=== PATIENT | female | born 1995 | race Caucasian/White ===

== ENCOUNTER → 2017-09-13 10:37 | Outpatient (CLI) | payer OTHER, SELFPAY | PROVIDERS: PCP Nurse Practitioner Family; Visit Provider Nurse Practitioner Family | DX: R68.89 Other general symptoms and signs (principal) | CPT/HCPCS: 87275; 87276 ==

== ENCOUNTER → 2017-11-01 16:08 | Outpatient (CLI) | payer OTHER, SELFPAY ==
[2017-11-01 16:23] LABS: Basophils % 0.4 % (0.1-2.0); Eosinophils # 0.1 K/mm3 (0.0-0.4); Eosinophils % 1.7 % (0.1-12.0); Hematocrit 39.4 % (37.0-47.0); Hemoglobin 13.4 g/dL (12.2-16.2); Lymphocytes % 31.1 K/mm3 (10-50); Mean Corpuscular Hemoglobin 29.8 pg (27.0-31.2); Mean Corpuscular Volume 87.8 fl (81-99); Mean Platelet Volume 7.8 fl (7.4-10.4); Monocytes # 0.4 K/mm3 (0.1-1.0); Monocytes % 5.4 % (1.7-9.3); Neutrophils % 61.5 % (37.0-80.0); Platelet Count 203 K/mm3 (142-424); Red Blood Count 4.49 M/mm3 (4.20-5.40); Red Cell Distribution Width 12.9 % (11.5-17.5); White Blood Count 6.6 K/mm3 (4.8-10.8)
[2017-11-01 16:47] LABS: Alanine Aminotransferase 19 U/L (12-78); Albumin Level 3.7 gm/dL (3.4-5.0); Albumin/Globulin Ratio 0.9 (1.1-1.8); Alkaline Phosphatase 68 U/L (46-116); Anion Gap 10.8 mEq/L (5-15); Aspartate Amino Transferase 16 U/L (15-37); Bilirubin,Total 0.1 mg/dL (0.2-1.0); Blood Urea Nitrogen 12 mg/dL (7-18); Calcium 9.1 mg/dL (8.5-10.1); Carbon Dioxide 25 mmol/L (21.0-32.0); Chloride 107 mmol/L (98-107); Creatinine,Serum 0.66 mg/dL (0.55-1.02); Estimated Glomerular Filt Rate 112 ml/min (>60); GFR (African American) 136 ML/MIN (>60); Globulin 3.9 gm/dl (1.3-3.2); Glucose 93 mg/dL (74-106); Potassium 3.8 mmoL/L (3.5-5.1); Sodium 139 mmol/L (136-145); Thyroid Stimulating Hormone 2.34 uIU/ml (0.358-3.740); Total Protein,Serum 7.6 gm/dL (6.4-8.2)
[2017-11-03 15:33] LABS: Vitamin B12 341 pg/mL (232-1245); Vitamin D 25 Hydroxy 24.2 ng/mL (30.0-100.0)
== END ==
PROVIDERS: Visit Provider Nurse Practitioner Family
DX: R00.2 Palpitations (principal); R53.83 Other fatigue
CPT/HCPCS: 36415; 80053; 82607; 82652; 84443; 85025

== ENCOUNTER → 2017-11-07 13:19 | Outpatient (CLI) | payer OTHER, MEDICAID, SELFPAY ==
--- NOTE | 2017-11-07 13:29 | CA_ITS ---
PROCEDURE: 2-D M-mode and Doppler study INDICATIONS FOR THE TEST: Chest pain COPD Heart Murmur Tobacco Smoking PalpitationsX Fatigue Syncope Edema Hypertension Diabetes Mellitus Rheumatic Fever SOB TATE Obesity Hyperlipidemia Family History HD Additional History PATIENT INFORMATION HEIGHT: 66 WEIGHT:145 GENDER: Female B/P:120/70 2-D/M-MODE INTERPRETATION: 2-D MEASUREMENTS OBSERVED VALUES IN CMS Right Ventricular Dimension (RVDd) 1.9 Interventricular Septum (Thickness)(IVsd) .7 Left Ventricular Internal Dimensions(LVIDd) 4.5 Left Ventricular Posterior Wall (Thickness)(LVPWd) .8 Aortic Root 2.7 Aortic Cusp Separation 1.8 Left Atrial Dimensions (LAD) 2.1 2D 1. Left atrium is normal size, left ventricle is normal size, there is no concentric left ventricular hypertrophy, visually estimated ejection fraction 55% with no obvious regional wall motion abnormality. 2. The right atrium and right ventricle are normal size and contractility. 3. The aortic, mitral and tricuspid valve are structurally normal 4. The pulmonic valve is poorly visualized 5. No significant pericardial effusion noted. DOPPLER INTERROGATION: Doppler interrogation of the aortic, mitral and tricuspid valvular presence of mild mitral and tricuspid regurgitation, tricuspid and enteric velocity insufficient for calculation of the right ventricular systolic pressure, diastolic parameters are within normal range. CONCLUSION: 1. Normal left ventricular size, preserved left ventricular systolic function, visually estimated ejection fraction 55% no signal wall motion abnormality, diastolic parameters are within normal range. 2. Mild mitral and tricuspid regurgitation 3. No significant pericardial effusion noted.
== END ==
PROVIDERS: PCP Nurse Practitioner Family; Visit Provider Nurse Practitioner Family
DX: R00.2 Palpitations (principal)
CPT/HCPCS: 93225; 93226; 93306

== ENCOUNTER → 2019-06-18 13:53 | Outpatient (CLI) | payer OTHER, SELFPAY ==
[2019-06-18 15:07] LABS: HCG,Quantitative 0 mIU/mL
== END ==
PROVIDERS: Visit Provider Obstetrics & Gynecology
DX: Z32.00 Encounter for pregnancy test, result unknown (principal)
CPT/HCPCS: 36415; 84702

== ENCOUNTER → 2019-09-06 14:44 | Outpatient (CLI) | payer OTHER, SELFPAY ==
[2019-09-06 15:01] LABS: Basophils % 0.3 % (0.1-2.0); Eosinophils # 0.1 K/mm3 (0.0-0.4); Eosinophils % 2.2 % (0.1-12.0); Hematocrit 37.8 % (37.0-47.0); Hemoglobin 12.5 g/dL (12.2-16.2); Lymphocytes # 1.7 K/mm3 (0.7-4.5); Lymphocytes % 26.2 % (10-50); Mean Corpuscular Hemoglobin 28.9 pg (27.0-31.2); Mean Corpuscular Volume 87.6 fl (81-99); Mean Platelet Volume 7.5 fl (7.4-10.4); Monocytes # 0.4 K/mm3 (0.1-1.0); Monocytes % 6.4 % (1.7-9.3); Neutrophils # 4.2 K/mm3 (1.8-7.8); Neutrophils % 64.8 % (37.0-80.0); Platelet Count 201 K/mm3 (142-424); Red Blood Count 4.32 M/mm3 (4.20-5.40); Red Cell Distribution Width 12.8 % (11.5-17.5); White Blood Count 6.5 K/mm3 (4.8-10.8)
[2019-09-06 15:14] LABS: Anion Gap 13.3 mEq/L (5-15); Blood Urea Nitrogen 11 mg/dL (7-18); Calcium 9.1 mg/dL (8.5-10.1); Carbon Dioxide 27 mmol/L (21.0-32.0); Chloride 107 mmol/L (98-107); Creatinine,Serum 0.77 mg/dL (0.55-1.02); Estimated Glomerular Filt Rate 92 ml/min (>60); GFR (African American) 111 ML/MIN (>60); Glucose 104 mg/dL (74-106); Potassium 4.3 mmoL/L (3.5-5.1); Sodium 143 mmol/L (136-145)
[2019-09-06 15:18] LABS: HCG Qualitative, Serum Negative (Negative)
== END ==
PROVIDERS: Visit Provider Surgery
DX: R10.31 Right lower quadrant pain (principal)
CPT/HCPCS: 36415; 80048; 84703; 85025

== ENCOUNTER → 2020-02-28 14:59 | Outpatient (CLI) | payer OTHER, SELFPAY ==
[2020-02-28 15:27] LABS: Basophils % 0.3 % (0.1-2.0); Eosinophils # 0.1 K/mm3 (0.0-0.4); Hematocrit 38.2 % (37.0-47.0); Hemoglobin 12.5 g/dL (12.2-16.2); Lymphocytes # 1.7 K/mm3 (0.7-4.5); Lymphocytes % 21.4 % (10-50); Mean Corpuscular HGB Conc 32.7 g/dL (31.8-35.4); Mean Corpuscular Hemoglobin 29.2 pg (27.0-31.2); Mean Corpuscular Volume 89.3 fl (81-99); Mean Platelet Volume 7.3 fl (7.4-10.4); Monocytes # 0.6 K/mm3 (0.1-1.0); Monocytes % 7.6 % (1.7-9.3); Neutrophils # 5.5 K/mm3 (1.8-7.8); Neutrophils % 69.6 % (37.0-80.0); Platelet Count 171 K/mm3 (142-424); Red Blood Count 4.28 M/mm3 (4.20-5.40); Red Cell Distribution Width 12.6 % (11.5-17.5); White Blood Count 7.9 K/mm3 (4.8-10.8)
[2020-03-01 11:10] LABS: HIV Screen 4th Generation wRfx Non Reactive (Non Reactive)
[2020-03-01 12:56] LABS: Hepatitis B Surface Antigen Negative (Negative); Hepatitis C Antibody <0.1 s/co ratio (0.0-0.9); Rubella Antibodies, IgG 2.16 index (Immune >0.99)
[2020-03-01 15:33] LABS: Rapid Plasma Reagin Ab Titer Non Reactive (NonRea<1:1)
== END ==
PROVIDERS: Visit Provider Nurse Practitioner Obstetrics & Gynecology
DX: Z34.90 Encounter for supervision of normal pregnancy, unspecified, unspecified trimester (principal)
CPT/HCPCS: 36415; 85025; 86592; 86703; 86762; 86850; 87340; 87380; G0432

== ENCOUNTER → 2020-03-11 12:08 | Outpatient (CLI) | payer OTHER, SELFPAY | PROVIDERS: PCP Internal Medicine Adolescent Medicine; Visit Provider Internal Medicine Adolescent Medicine | DX: U07.1 COVID-19 (principal) | CPT/HCPCS: U0003 ==

== ENCOUNTER → 2020-03-20 11:30 | Outpatient (CLI) | payer OTHER, SELFPAY ==
[2020-03-21 14:42] LABS: Covid-19 Nasal PCR Sendout Lex POSITIVE
== END ==
PROVIDERS: PCP Internal Medicine Adolescent Medicine; Visit Provider Internal Medicine Adolescent Medicine
DX: Z20.828 Contact with and (suspected) exposure to other viral communicable diseases (principal); U07.1 COVID-19
CPT/HCPCS: U0004

== ENCOUNTER → 2020-03-24 13:31 | Outpatient (CLI) | payer OTHER, SELFPAY ==
[2020-03-24 19:35] LABS: Coronavirus 19 IgG Antibody Positive (Negative); Coronavirus 19 IgM Antibody Negative (Negative)
== END ==
PROVIDERS: PCP Internal Medicine Adolescent Medicine; Visit Provider Internal Medicine Adolescent Medicine
DX: Z20.828 Contact with and (suspected) exposure to other viral communicable diseases (principal); U07.1 COVID-19
CPT/HCPCS: 36415; 86328

== ENCOUNTER → 2020-05-26 15:05 | Outpatient (CLI) | payer OTHER, SELFPAY ==
[2020-05-30 00:08] LABS: AFP Value 57.2 ng/mL (.); DIA MoM 1.34 (.); DIA Value 214.29 pg/mL (.); DSR (Second Trimester) 1 IN 3802 (.); Gest. Age on Collection Date 18.6 WEEKS (.); Maternal Age At EDD 25.9 yr (.); OSBR Risk 1 IN 4947 (.); Results Report (.); hCG MoM 0.99 (.); uE3 MoM 0.87 (.); uE3 Value 1.43 ng/mL (.)
[2020-05-30 10:05] LABS: Gestat. Age Based On EDD (.)
== END ==
PROVIDERS: Visit Provider Nurse Practitioner Obstetrics & Gynecology
DX: Z34.90 Encounter for supervision of normal pregnancy, unspecified, unspecified trimester (principal)
CPT/HCPCS: 36415; 82106

== ENCOUNTER → 2020-06-06 12:49 | Outpatient (CLI) | payer OTHER, SELFPAY ==
--- NOTE | 2020-06-06 12:50 | US_ITS ---
PROCEDURE: US OB /MATERNAL DETAIL CLINICAL INDICATION: 20 week gestation Anatomy exam COMPARISON: No exams were available for comparison FINDINGS: There is a single live intrauterine gestation which is in cephalic presentation. heart and body motion noted. The placenta is posterior and fundal. Grade 1. The cervix is closed and measures approximately 4 cm in length. Complete survey performed and was unremarkable on the submitted images as in PACS. No discrete anomalies identified on survey imaging by technologist. Active fetus. Three-vessel cord with satisfactory umbilical cord insertion. 4- chamber heart noted. Survey of brain & ventricles Unremarkable. Face and neck survey unremarkable. Diaphragm and chest views unremarkable. Abdomen: Both kidneys noted and unremarkable. Stomach noted and satisfactory. Spine: Survey of the spine satisfactory with no anomalies identified nor imaged. Both arms and legs noted. Amniotic Fluid: Adequate. Maternal adnexa: No significant findings. Measurements: Average ultrasound age 20weeks 4days. Gestational Age 20weeks 4days Estimated due date by ultrasound age 0310/20/2020. Estimated weight 351g BPD = 20weeks 5days OFD = 21 weeks 1 day HC = 20weeks 2days AC = 20weeks 3days FL = 20weeks 4days Growth Percentile= 56Percent% Heart Rate = 150bpm Cerebellum = 20weeks 4days Humerus = 20weeks 1day HC/AC is 1.17 CI is 0.76 FL/BPD is 0.69 FL/AC is 0.22 IMPRESSION: Live IUP in cephalic presentation with an average ultrasound age of 20 weeks and 4 days. No obvious anomalies. Please see above for detail. Dictated by: Vernon Gunn MD 06/07/2020 10:30 Vernon Gunn MD in [facility] 06/07/2020 10:30
== END ==
PROVIDERS: PCP Internal Medicine Adolescent Medicine; Visit Provider Nurse Practitioner Obstetrics & Gynecology
DX: Z34.90 Encounter for supervision of normal pregnancy, unspecified, unspecified trimester (principal); Z3A.20 20 weeks gestation of pregnancy
CPT/HCPCS: 76811

== ENCOUNTER → 2020-07-29 07:58 | Outpatient (CLI) | payer OTHER, SELFPAY ==
[2020-08-07 08:53] LABS: Glucose,Fasting 95 mg/dl (74-100)
[2020-08-07 10:30] LABS: Glucose 1 Hour 181 mg/dL (74-100)
== END ==
PROVIDERS: Visit Provider Nurse Practitioner Obstetrics & Gynecology
DX: Z34.90 Encounter for supervision of normal pregnancy, unspecified, unspecified trimester (principal)
CPT/HCPCS: 36415; 82951

== ENCOUNTER → 2020-08-07 08:03 | Outpatient (CLI) | payer OTHER, SELFPAY | PROVIDERS: Visit Provider Nurse Practitioner Obstetrics & Gynecology | DX: Z34.90 Encounter for supervision of normal pregnancy, unspecified, unspecified trimester (principal) ==

== ENCOUNTER → 2020-08-14 08:10 | Outpatient (CLI) | payer OTHER, SELFPAY ==
[2020-08-14 08:41] LABS: Glucose,Fasting 97 mg/dl (74-100)
[2020-08-14 10:08] LABS: Glucose 1 Hour 181 mg/dL (74-100)
[2020-08-14 11:54] LABS: Glucose 2 Hour 127 mg/dL (74-100)
[2020-08-14 15:22] LABS: Glucose 3 Hour 125 mg/dL (74-100)
== END ==
PROVIDERS: Visit Provider Nurse Practitioner Obstetrics & Gynecology
DX: O99.810 Abnormal glucose complicating pregnancy (principal); R73.09 Other abnormal glucose; Z34.90 Encounter for supervision of normal pregnancy, unspecified, unspecified trimester
CPT/HCPCS: 36415; 82951

== ENCOUNTER → 2020-09-24 18:08 | Outpatient (CLI) | payer OTHER, SELFPAY | PROVIDERS: Visit Provider Nurse Practitioner Obstetrics & Gynecology | DX: Z34.90 Encounter for supervision of normal pregnancy, unspecified, unspecified trimester (principal); Z3A.36 36 weeks gestation of pregnancy | CPT/HCPCS: 86403 ==

== ENCOUNTER → 2020-10-06 10:41 | Outpatient (CLI) | payer OTHER, SELFPAY ==
--- NOTE | 2020-10-06 10:41 | US_ITS ---
PROCEDURE: US OB BIOPHYSICAL PROFILE CLINICAL INDICATION: SGA Small for gestational age TECHNIQUE: Transabdominal imaging FINDINGS: The following parameters are obtained: Average ultrasound age is Average 37weeks 4days Estimated due date by ultrasound is 10/23/2020. Estimated weight is 3,161g. This is 51 percentile BPD: 38 weeks 4 days OFD: 38 weeks 4 days HC: 37 weeks 2 days AC: 37 weeks 2 days FL: 37 weeks 0 days heart rate: 169bpm bpm. HC/AC: 0.99 Cephalic index: 0.83 FL/BPD: 0.76 FL/AC: 0.22 Amniotic fluid index: 15.72cm Qualitative AFV: 2 breathing movements: 2 Gross body movements: 2 Tone: 2 Biophysical profile score: 8 Fetus is in cephalic presentation. The placenta is posterior and grade 3 CHIKA is 16 cm IMPRESSION: Live IUP at 37 weeks 4 days with an estimated weight 3161 g which is 51st percentile. Normal CHIKA of 16 cm Biophysical profile 8/8 Posterior grade 3 placenta Dictated by: Vernon Gunn MD 10/07/2020 08:58 Vernon Gunn MD in [facility] 10/07/2020 08:58
== END ==
PROVIDERS: PCP Internal Medicine Adolescent Medicine; Visit Provider Nurse Practitioner Obstetrics & Gynecology
DX: O36.5131 Maternal care for known or suspected placental insufficiency, third trimester, fetus 1 (principal)
CPT/HCPCS: 76816; 76819

== ENCOUNTER 2020-10-08 12:10 | Outpatient (CLI) | payer OTHER, SELFPAY ==
[2020-10-08 12:25] VITALS: BMI 30.8
[2020-10-08 12:45] VITALS: BP 134/87; PULSE 101; RESP 20; O2SAT 97
[2020-10-08 12:47] LABS: Microscopic, Urine URINE MICROSCOPIC (MICROSCOPIC)
[2020-10-08 12:48] VITALS: BMI 30.8
[2020-10-08 12:56] LABS: Appearance,Urine CLOUDY (Clear); Bilirubin,Urine Negative (Negative); Blood, Urine 1+ (Negative); Color,Urine YELLOW (Yellow); Glucose,Urine (UA) Negative (Negative); Ketones,Urine Negative (Negative); Leukocyte Esterase,Urine 2+ (Negative); Nitrate,Urine Negative (Negative); Protein,Urine 1+ (Negative); Specific Gravity, Urine >= 1.030 (1.005-1.030); Urobilinogen,Urine 0.2 EU/dl (0.2)
[2020-10-08 13:02] LABS: Fetal Membrane Rupture (Rapid) Negative (Negative)
[2020-10-08 13:08] LABS: Amphetamine/Metha Screen,Urine Negative ng/ml (<1000)
[2020-10-08 13:09] LABS: Barbiturates Screen,Urine Negative ng/ml (<200); Benzodiazepines Screen,Urine Negative ng/ml (<200)
[2020-10-08 13:10] LABS: Cannabinoid Screen,Urine Negative ng/ml (<50); Cocaine Screen,Urine Negative ng/ml (<300)
[2020-10-08 13:11] LABS: Methadone Screen,Urine Negative ng/ml (<300)
[2020-10-08 13:12] LABS: Opiate Screen,Urine Negative ng/ml (<300); Phencyclidine Screen,Urine Negative ng/ml (<25)
[2020-10-08 13:29] LABS: Bacteria,Urine Trace /lpf
== END 2020-10-08 14:10 | disposition home or self-care (01) ==
LOC: OBOUT 12:11 → OB 12:11
PROVIDERS: PCP Internal Medicine Adolescent Medicine; Visit Provider Nurse Practitioner Obstetrics & Gynecology
DX: O26.893 Other specified pregnancy related conditions, third trimester (principal); Z3A.38 38 weeks gestation of pregnancy
CPT/HCPCS: 59025; 80305; 81001; 84112; 87086; G0463

== ENCOUNTER → 2020-10-19 09:38 | Outpatient (CLI) | payer OTHER, SELFPAY | PROVIDERS: PCP Internal Medicine Adolescent Medicine; Visit Provider Nurse Practitioner Obstetrics & Gynecology | DX: Z01.818 Encounter for other preprocedural examination (principal); Z20.822 Contact with and (suspected) exposure to COVID-19; Z34.90 Encounter for supervision of normal pregnancy, unspecified, unspecified trimester | CPT/HCPCS: U0003 ==

== ENCOUNTER 2020-10-20 04:56 | Inpatient (IN) | payer OTHER, SELFPAY ==
[2020-10-20 05:00] VITALS: BMI 30.8
[2020-10-20 05:55] VITALS: BP 117/73; PULSE 80; RESP 18; TEMP 36.7; O2SAT 99; BMI 30.8
[2020-10-20 05:58] LABS: Microscopic, Urine URINE MICROSCOPIC (MICROSCOPIC)
[2020-10-20 06:09] LABS: Basophils % 0.3 % (0.1-2.0); Eosinophils # 0.1 K/mm3 (0.0-0.4); Hematocrit 33.8 % (37.0-47.0); Lymphocytes # 1.9 K/mm3 (0.7-4.5); Mean Corpuscular HGB Conc 32.5 g/dL (31.8-35.4); Mean Corpuscular Hemoglobin 31.2 pg (27.0-31.2); Mean Platelet Volume 10.7 fl (7.4-10.4); Monocytes # 0.8 K/mm3 (0.1-1.0); Monocytes % 7.8 % (1.7-9.3); Neutrophils # 7.3 K/mm3 (1.8-7.8); Neutrophils % 71.9 % (37.0-80.0); Platelet Count 112 K/mm3 (142-424); Red Blood Count 3.53 M/mm3 (4.20-5.40); Red Cell Distribution Width 14.8 % (11.5-17.5); White Blood Count 10.2 K/mm3 (4.8-10.8)
[2020-10-20 06:11] LABS: Appearance,Urine CLEAR (Clear); Bilirubin,Urine Negative (Negative); Blood, Urine TRACE-L (Negative); Color,Urine YELLOW (Yellow); Glucose,Urine (UA) Negative (Negative); Ketones,Urine Negative (Negative); Leukocyte Esterase,Urine 2+ (Negative); Nitrate,Urine Negative (Negative); Protein,Urine Negative (Negative); Specific Gravity, Urine 1.025 (1.005-1.030); Urobilinogen,Urine 0.2 EU/dl (0.2)
[2020-10-20 06:49] LABS: Bacteria,Urine Trace /lpf
[2020-10-20 07:03] LABS: Barbiturates Screen,Urine Negative ng/ml (<200)
[2020-10-20 07:04] LABS: Benzodiazepines Screen,Urine Negative ng/ml (<200)
[2020-10-20 07:05] LABS: Amphetamine/Metha Screen,Urine Negative ng/ml (<1000); Cannabinoid Screen,Urine Negative ng/ml (<50)
[2020-10-20 07:06] LABS: Cocaine Screen,Urine Negative ng/ml (<300); Methadone Screen,Urine Negative ng/ml (<300)
[2020-10-20 07:07] LABS: Opiate Screen,Urine Negative ng/ml (<300)
[2020-10-20 07:08] LABS: Phencyclidine Screen,Urine Negative ng/ml (<25)
--- NOTE | 2020-10-20 09:32 | HMH.LABNOT ---
Labor Note - Subjective: Date: 10/20/20 Time: 09:00 regular contraction - Objective: NST:: Reactive Contractions:: every 2-3 minutes Cervical Dilation:: 2 Effacement:: 75% Station: -2 Membranes: artificially ruptured - Fetus: Monitoring?: Yes monitoring type:: Internal and External Comment:: I inserted an IUPC. - Assessment: Labor progressing?: Yes Cephalopelvic disproportion?: No Patient Problems: All Active Problems (Acute) Abdominal pain (Acute) Constipation (Acute) Medication side effects (Acute) - Plan: Anesthesia for epidural?: No Continue to labor down?: Yes Plan for ?: No Continue to monitor?: Yes Start pushing?: No Comment:: I ruptured membranes and there is clear fluid. I inserted an IUPC.
--- NOTE | 2020-10-20 09:33 | HMH.OBAPHP ---
OB - H&P: HPI Antepartum - History of Present Illness Chief complaint: Term History of present illness: She is a 24-year-old 3 para 1 at 39 and 4 weeks gestational age. She is been feeling pressure and vaginal contractions. As result of that we have elected to induce her labor at term. - History of Present Criteria for establishing EDC:: LMP confirmed by 1st trimester US care: good care Ultrasounds: normal 1st trimester US, normal mid trimester US Obstetrical complications: none - Labs Blood type: O (+) positive Rubella: immune RPR/VDRL: nonreactive GBS status: negative HBsAG: negative [facility] History I have reviewed the patient's past medical history: Yes Medical History: Reports:: Anxiety, Migraine *Have you ever received a pneumonia vaccine?: No *Have you received a flu vaccine this season?: Yes Other Medical History: Reports: Other Laterality Cases: Bilateral: Tonsillectomy Other Surgeries: Yes: No Previous Surgery. No: Amputation: No Fractures: No - *Social History Smoking Status: Never smoker Alcohol Intake: never Alcohol Intake Frequency:: other Substance Use Type: denies use *Occupational Status:: employed *Travel in the last 8 weeks: None - Psychiatric History Pschychiatric History:: Reports:: Anxiety Family Hx:: No significant family history CO[place] LEAD history: Therapeutic Para: 1 Review of Systems - Review of Systems Review of systems:: pertinent systems reviewed and negative unless documented below Meds Home Medications Medication Instructions Recorded Confirmed Type Vit Calc,Iron,Folic [Kpn] 1 tab PO DAILY 10/20/20 10/20/20 History Terconazole 1 appful VAGINAL HS 10/20/20 10/20/20 History Allergies Allergy/AdvReac Type Severity Reaction Status Date / Time No Known Allergies Allergy Verified 10/16/20 08:12 OB - H&P: Exam - Physical Exam Vital signs: Temp Pulse Resp BP Pulse Ox 98.0 F 80 18 117/73 99 10/20/20 05:55 10/20/20 05:55 10/20/20 05:55 10/20/20 05:55 10/20/20 05:55 - Constitutional no acute distress - Routine HEENT Exam Head: Present: normocephalic Eye: Present: EOMI, PERRL ENT: Present: mucous membranes moist - Routine Neck Exam Present: supple, full ROM - Routine Respiratory Exam Absent: accessory muscle use (good air entry bilaterally), respiratory distress, wheezes, crackles - Routine Cardiovascular Exam Present: RRR. Absent: murmur - Routine Abdominal Exam Present: soft, normoactive bowel sounds. Absent: tenderness, distended, guarding - Routine Rectal Exam Patient deferred: visual exam, digital exam - Routine Exam Patient deferred: external exam, groin exam, perineal exam - Routine Extremities Exam Present: full ROM. Absent: cyanosis, edema - Routine Skin Exam Present: intact. Absent: cyanosis - Routine Neurological Exam Present: alert, oriented X3 - Routine Psychiatric Exam Present: normal affect OB - Results - Labs Labs: Short CBC 10/20/20 Range/Units 05:37 WBC 10.2 (4.8-10.8) K/mm3 Hgb 11.0 L (12.2-16.2) g/dL Hct 33.8 L (37.0-47.0) % Plt Count 112 L (142-424) K/mm3 Urine 10/20/20 Range/Units 05:37 Urine Color Yellow (Yellow) Urine Appearance Clear (Clear) Urine pH 6.0 (5.0-8.5) Ur Specific [place] 1.025 (1.005-1.030) Urine Protein Negative (Negative) Urine Glucose (UA) Negative (Negative) OB - A/P Antepartum (1) Normal delivery at term Status: Acute - Additional Plan Planning to breastfeed?: Yes Plan: induction Additional Information:: I have ruptured her membranes and there was clear fluid. An IUPC was inserted as well.
--- NOTE | 2020-10-20 12:39 | HMH.DN ---
- Delivery Note Delivery Date:: 10/20/20 Delivery Time:: 12:24 Anesthesia Type: None Was labor medically induced?: Yes Induction method: per pitocin protocol Gestational age (weeks): 39 delivered prior to 39 weeks?: No Gender: Female at 1 minute: 9 at 5 minutes: 9 LAC or MLE?: LAC Delivery Procedure:: She is a 24-year-old 3 para 1 aborta 1 who was 39+ weeks gestational age. She was feeling pressure and discomfort so we elected to induce her labor at term. She was started on IV oxytocin had her membranes ruptured. She progressed to full dilation and delivered spontaneously a liveborn female child at 12:24 PM in the afternoon of October 20, 2020. On deliver the head the anterior shoulder then rapidly delivered followed by the rest the 's body atraumatically. The oropharynx and nasopharynx were bulb suction. The baby was vigorous. We allowed the cord to continue to pulsate for approximately 1 minute. The cord is then doubly clamped and cut and the infant was placed on the mother's abdomen for further care. The nurses assigned Apgars of 9 at 1 minute and 9 at 5 minutes. We then obtained cord blood as well as cord pH. Using gentle traction on the cord and countertraction on the fundus I was able to easily deliver the placenta intact at 12:28 PM.. It had a normal three-vessel cord. She had a small second-degree perineal laceration that was repaired with 3-0 Vicryl Rapide suture to the superficial tissue of the vagina and 2-0 Vicryl suture to the deep tissues of the perineum. I anesthetized the skin with 10 cc of 1% Xylocaine. I used 2-0 Vicryl suture for the subcuticular stitches on the perineum as well. She has O+ blood, she is rubella immune and was group B streptococcus negative. She plans to breast-feed. Her channeler outsole is Dr. Quintero. Estimated blood loss was approximately 500 cc. Laceration:: vaginal Placental Delivery Description: Spontaneous
[2020-10-20 20:00] VITALS: BP 125/73; PULSE 75; RESP 17; TEMP 36.8; O2SAT 98
[2020-10-21 07:44] LABS: Hematocrit 31.3 % (37.0-47.0); Hemoglobin 10.4 g/dL (12.2-16.2)
[2020-10-21 08:00] VITALS: BP 117/78; PULSE 87; RESP 20; TEMP 36.7; O2SAT 99
--- NOTE | 2020-10-21 08:43 | HMH.ACPN2 ---
Internal Medicine - PN: Subj *Date: 10/21/20 *Time: 08:43 Interval history: She is doing very well this morning. She is eating and drinking and ambulating. She is breast-feeding. Her lochia is normal. She is 1 day from a vaginal delivery. Exam Vital signs and Labs for Last 24 Hours: Temp Pulse Resp BP Pulse Ox 98.3 F 75 17 125/73 98 10/20/20 20:00 10/20/20 20:00 10/20/20 20:00 10/20/20 20:00 10/20/20 20:00 Laboratory Results - last 24 hr 10/20/20 12:39: Cord ABG pH 7.30 L 10/21/20 06:45: Hgb 10.4 L, Hct 31.3 L I & O for Last 24 hours: Intake & Output 10/18/20 10/19/20 10/20/20 10/21/20 10:59 11:59 11:59 11:59 Weight 197 lb Microbiology Reports for the Last 24 Hours: Microbiology 10/20/20 05:37 Urine,Clean Catch Urine Culture - Preliminary NO GROWTH AFTER 24 HOURS - Constitutional no acute distress - *Routine HEENT Exam Head: Present: normocephalic Eye: Present: EOMI, PERRL ENT: Present: mucous membranes moist Assessment and Plan (1) Normal delivery at term Status: Acute Category: Medical Code(s): O80 - Encounter for full-term uncomplicated delivery - Assessment and plan all Dx Assessment and Plan for all problems:: She is doing very well this morning. She is eating and drinking and ambulating. She is breast-feeding. We will plan to send her home tomorrow.
[2020-10-21 16:20] VITALS: BP 116/69; PULSE 97; RESP 20; TEMP 36.9; O2SAT 98
[2020-10-22 08:30] VITALS: BP 134/75; PULSE 87; RESP 20; TEMP 36.9; O2SAT 98
--- NOTE | 2020-10-22 09:34 | HMH.OBDCSM ---
General - General Admission date:: 10/20/20 Discharge date: 10/22/20 HPI - History of Present Illness Comments: She is a 24-year-old 3 now para 2 aborta 1 who was 39 weeks gestational age. She was feeling pressure and discomfort so we elected to induce her labor at term. Hospital Course Hospital Course: She was started on IV oxytocin had her membranes ruptured. She progressed to full dilation and delivered spontaneously a liveborn female child at 12:24 PM in the afternoon of October 20, 2020. Baby weighed 7 pounds 12 ounces and was 20 inches long. She had Apgars of 9 at 1 minute and 9 at 5 minutes. She has done well and has remained afebrile throughout her hospitalization. She is eating and drinking and ambulating. She is bottlefeeding. Her lochia is normal. She has O+ blood, she is rubella immune and was group B streptococcus negative. Her cloth carrier is Dr. Quintero. She is discharged home to follow-up with me in 2 weeks time. She will continue with her vitamins and iron. She was given the usual instructions with respect to limiting her activity, driving and sexual activity. Her condition on discharge is stable and improved. Rhogam Administration: Not Indicated Objective Vital signs: Temp Pulse Resp BP Pulse Ox 98.4 F 97 H 20 116/69 98 10/21/20 16:20 10/21/20 16:20 10/21/20 16:20 10/21/20 16:20 10/21/20 16:20 no acute distress - *Routine HEENT Exam Head: Present: normocephalic Eye: Present: EOMI, PERRL ENT: Present: mucous membranes moist DS: Diagnosis - Discharge Diagnosis (1) Normal delivery at term Status: Acute Discharge Plan - Patient Discharge Instructions ACTIVITY: No heavy lifting DIET: continue same diet Additional Instructions: No heavy lifting and nothing in the vagina for 6 weeks. Patient Instructions: Depression, Hemorrhage, DI for Labor and Delivery, Vaginal , DI for Pre-eclampsia, [facility] Post Discharge Instructions, Preventing the Spread of Coronavirus Discharge Instructions - Follow up Plan Follow up with: Feliciano Chaudhary MD [Staff Physician] - 11/05/20 10:15 am Disposition: Home, Self-[facility] Medications: Home Medications Medication Instructions Recorded Confirmed Type Vit Calc,Iron,Folic [Kpn] 1 tab PO DAILY 10/20/20 10/20/20 History Terconazole 1 appful VAGINAL HS 10/20/20 10/20/20 History Prescriptions/Medication Reconciliation: Continued Vit Calc,Iron,Folic [Kpn] 1 tab PO DAILY No Action Terconazole 1 appful VAGINAL HS - Problem Reconciliation Problems Reviewed?: Yes
== END 2020-10-22 10:49 | disposition home or self-care (01) | DRG 807 ==
PROVIDERS: Admitting Provider Nurse Practitioner Obstetrics & Gynecology; PCP Internal Medicine Adolescent Medicine; Visit Provider Nurse Practitioner Obstetrics & Gynecology
DX: O70.1 Second degree perineal laceration during delivery (principal); Z37.0 Single live birth; Z3A.39 39 weeks gestation of pregnancy
CPT/HCPCS: 59409; 36415; 59025; 80305; 81001; 82800; 85014; 85018; 85025; 86850; 87086; C1758

== ENCOUNTER → 2023-01-14 12:46 | Outpatient (CLI) | payer OTHER, SELFPAY ==
[2023-01-14 14:11] LABS: HCG,Quantitative 238 mIU/ml (0-5.42)
[2023-01-15 12:28] LABS: Progesterone 10.4 ng/mL (.)
== END ==
PROVIDERS: PCP Internal Medicine Adolescent Medicine; Visit Provider Nurse Practitioner Obstetrics & Gynecology
DX: N92.6 Irregular menstruation, unspecified (principal); Z32.00 Encounter for pregnancy test, result unknown
CPT/HCPCS: 36415; 84144; 84702

== ENCOUNTER → 2023-01-17 08:02 | Outpatient (CLI) | payer OTHER, SELFPAY ==
[2023-01-17 09:02] LABS: HCG,Quantitative 849 mIU/ml (0-5.42)
== END ==
PROVIDERS: PCP Internal Medicine Adolescent Medicine; Visit Provider Nurse Practitioner Obstetrics & Gynecology
DX: Z32.01 Encounter for pregnancy test, result positive (principal)
CPT/HCPCS: 36415; 84702

== ENCOUNTER → 2023-01-20 08:17 | Outpatient (CLI) | payer OTHER, SELFPAY ==
[2023-01-20 17:04] LABS: HCG Qualitative, Serum Positive (Negative)
[2023-01-21 09:32] LABS: Progesterone 9.4 ng/mL (.)
== END ==
PROVIDERS: PCP Internal Medicine Adolescent Medicine; Visit Provider Nurse Practitioner Obstetrics & Gynecology
DX: Z34.91 Encounter for supervision of normal pregnancy, unspecified, first trimester (principal)
CPT/HCPCS: 36415; 84144; 84703

== ENCOUNTER → 2023-02-03 16:24 | Outpatient (CLI) | payer OTHER, SELFPAY | PROVIDERS: Visit Provider Obstetrics & Gynecology | DX: Z34.91 Encounter for supervision of normal pregnancy, unspecified, first trimester (principal) | CPT/HCPCS: 87086 ==

== ENCOUNTER → 2023-02-11 11:02 | Outpatient (CLI) | payer OTHER, SELFPAY ==
[2023-02-11 13:11] LABS: Basophils % 0.4 % (0.1-2.0); Eosinophils # 0.1 K/mm3 (0.0-0.4); Hematocrit 40.4 % (37.0-47.0); Lymphocytes # 1.3 K/mm3 (0.7-4.5); Lymphocytes % 19.4 % (10-50); Mean Corpuscular HGB Conc 32.1 g/dL (31.8-35.4); Mean Corpuscular Hemoglobin 28.3 pg (27.0-31.2); Mean Corpuscular Volume 88.1 fl (81-99); Monocytes # 0.4 K/mm3 (0.1-1.0); Monocytes % 5.6 % (1.7-9.3); Neutrophils # 4.9 K/mm3 (1.8-7.8); Neutrophils % 72.6 % (37.0-80.0); Platelet Count 193 K/mm3 (142-424); Red Blood Count 4.59 M/mm3 (4.20-5.40); Red Cell Distribution Width 13.1 % (11.5-17.5); White Blood Count 6.7 K/mm3 (4.8-10.8)
[2023-02-12 08:17] LABS: HIV Screen 4th Generation wRfx Non Reactive (Non Reactive); Rubella Antibodies, IgG 1.67 index (Immune >0.99)
[2023-02-12 10:12] LABS: Rapid Plasma Reagin Ab Titer Non Reactive (NonRea<1:1)
[2023-03-21 13:22] LABS: Hepatitis B Surface Antigen Negative; Hepatitis C Antibody Non Reactive
== END ==
PROVIDERS: PCP Internal Medicine Adolescent Medicine; Visit Provider Obstetrics & Gynecology
DX: Z34.91 Encounter for supervision of normal pregnancy, unspecified, first trimester (principal); Z3A.01 Less than 8 weeks gestation of pregnancy
CPT/HCPCS: 36415; 85025; 86593; 86703; 86762; 86850; 87340; 87380; G0432

== ENCOUNTER → 2023-05-06 12:28 | Outpatient (CLI) | payer OTHER, SELFPAY ==
--- NOTE | 2023-05-06 12:28 | US_ITS ---
PROCEDURE: US OB >= 14 WK FETUS ADD GEST CLINICAL INDICATION: 20 week anatomy scan Twins COMPARISON: No exams were available for comparison FINDINGS: Transabdominal sonographic images of the pelvis were obtained. From her established due date she is . Twin viable intrauterine gestation. Twin A vertex position. Twin B transverse position. Placenta: Anteriorplacenta grade 1. The placentas appear to be fused. Difficult to determine if 1 or 2 placentas. There is average amount fluid in both sacs. There are 2 amnions seen. The cervix appears satisfactory. Closed and measuring 4.0 cm in length. Complete survey performed and was unremarkable on the submitted images as in PACS. No discrete anomalies identified on surveys imaging by technologist. Twin A. Active fetus. Three-vessel cord with satisfactory umbilical cord insertion. 4- chamber heart noted. Situs, aortic arch, LVOT, RVOT appear normal. Survey of brain & ventricles Unremarkable. Choroid plexus, cerebellum, cisterna magna, thalamus appear normal. Face and neck survey unremarkable. Diaphragm and chest views unremarkable. Abdomen: Both kidneys noted and unremarkable. Stomach and bladder noted and satisfactory. Spine: Survey of the spine satisfactory with no anomalies identified nor imaged. Upper, thoracic and lower spine appear normal. Both arms and legs noted. Amniotic Fluid: Adequate. Fetus appears to be male. Measurements: Average ultrasound age 20weeks 4days. Estimated due date by ultrasound age 0209/19/2023. Estimated weight 330g BPD = 21weeks 2days HC = 20weeks 4days AC = 20weeks 3days FL = 19weeks 4days Growth Percentile= 21 Heart Rate = 146bpm Cerebellum = 20weeks 2days Humerus = 20weeks 1day HC/AC is 1.19 FL/BPD is 0.61 FL/AC is 0.2 Twin B. Active fetus. Three-vessel cord with satisfactory umbilical cord insertion. 4- chamber heart noted. Situs, aortic arch, LVOT, RVOT appears normal. Survey of brain & ventricles Unremarkable. Choroid plexus, thalamus, cerebellum and cisterna magna appear normal. Face and neck survey unremarkable. Profile, nasion, lips and nose appeared normal. Diaphragm and chest views unremarkable. Abdomen: Both kidneys noted and unremarkable. Stomach and bladder noted and satisfactory. Spine: Survey of the spine satisfactory with no anomalies identified nor imaged. Upper, thoracic and lower spine appears normal. Both arms and legs noted. Amniotic Fluid: Adequate. Fetus appears to be male. Measurements: Average ultrasound age 20weeks 1 day. Estimated due date by ultrasound age 0209/19/2023. Estimated weight 299 g BPD = 20 weeks 6 days HC = 20weeks 2 days AC = 19 weeks 1 day FL = 19weeks 6 days Growth Percentile= 7 Heart Rate = 146bpm Cerebellum = 20weeks 2days Humerus = 20weeks 1day HC/AC is 1.29 FL/BPD is 0.65 FL/AC is 0.23 IMPRESSION: 1. Viable twin . 2. Twin A is cephalic and twin B is transverse. 3. biometry is consistent with the dates. 4. Anatomical scans appear normal. 5. Difficult to determine if 1 or 2 anterior placentas. 6. There are 2 amnions. Possible monochorionic, diamniotic. 7. Both fetuses appear to be male. Dictated by: Feliciano Chaudhary MD 05/07/2023 12:17 Feliciano Chaudhary MD in [facility] 05/07/2023 12:17
== END ==
LOC: RAD 12:28
PROVIDERS: PCP Internal Medicine Adolescent Medicine; Visit Provider Obstetrics & Gynecology
DX: Z3A.20 20 weeks gestation of pregnancy; O30.032 Twin pregnancy, monochorionic/diamniotic, second trimester
CPT/HCPCS: 76805; 76810

== ENCOUNTER → 2023-06-08 14:12 | Outpatient (CLI) | payer OTHER, SELFPAY ==
--- NOTE | 2023-06-08 14:12 | US_ITS ---
PROCEDURE: US OB >= 14 WK FETUS ADD GEST CLINICAL INDICATION: twin single placenta to check blood flow COMPARISON: US US OB >= 14 WK FETUS ADD GEST from 05/06/2023 FINDINGS: Transabdominal sonographic images of the pelvis were obtained: TWIN From her established due date she is 25weeks 2days TWIN A: Viable fetus in the cephalic presentation with a single shared anterior placenta grade 1. The cervix measures 5.1 cm. The following parameters are obtained: Average ultrasound age is 25 weeks 3 days heart rate: 156 bpm. BPD: 26weeks 3days. HC: 25weeks 4days AC: 24weeks 6days FL: 24weeks 5days HC/AC: 1.16 FL/BPD: 0.68 FL/AC: 0.22 Growth percentile = 24 Estimated weight is 747 grams Amniotic fluid appears adequate. Doppler evaluation of the umbilical artery: SD ratio: Ranges from 2.9 to 4.4. Resistive index: 0.65 No obvious anomalies evident. profile seen, nasion, stomach, bladder, kidneys, diaphragm, three-vessel cord, four chamber heart, three-vessel view appear normal. TWIN B: Viable fetus in the breech presentation with a single shared anterior placenta grade 1. The following parameters are obtained: Average ultrasound age is 25weeks 0 days. heart rate: 146 bpm. BPD: 25 weeks 6 days HC: 25 weeks 2 days AC: 24 weeks 6 days FL: 24 weeks 0 days Estimated weight is 717 grams 16 percentile. Amniotic fluid appears adequate. Doppler evaluation of the umbilical artery: SD ratio: 2.8-3.39 Resistive index: 0.69 No obvious anomalies evident.Kidneys, profile, nasion, three-vessel cord, four-chamber heart appear normal. IMPRESSION: 1. Viable twin . Appears to be monochorionic, diamniotic. Shared anterior placenta grade 1. 2. Twin A is in the cephalic presentation, Twin B is in the breech presentation. 3. There has been good interval growth of both twins. 4. The amniotic fluid appears normal for both twins. 5. SD ratio is slightly elevated in TWIN A between 2.9 and 4.4. 6. Both fetuses is appear to be male. Dictated by: Feliciano Chaudhary MD 06/09/2023 10:47 Feliciano Chaudhary MD in [place] 06/09/2023 10:47
== END ==
PROVIDERS: PCP Internal Medicine Adolescent Medicine; Visit Provider Obstetrics & Gynecology
DX: O30.002 Twin pregnancy, unspecified number of placenta and unspecified number of amniotic sacs, second trimester (principal)
CPT/HCPCS: 76805; 76810; 76820

== ENCOUNTER 2023-06-15 20:52 | Outpatient (CLI) | payer OTHER, SELFPAY ==
[2023-06-15 21:00] VITALS: BMI 28.1
[2023-06-15 21:19] LABS: Microscopic, Urine URINE MICROSCOPIC (MICROSCOPIC)
[2023-06-15 21:38] LABS: Appearance,Urine CLEAR (Clear); Bilirubin,Urine Negative (Negative); Blood, Urine TRACE-I (Negative); Color,Urine YELLOW (Yellow); Glucose,Urine (UA) Negative (Negative); Ketones,Urine Negative (Negative); Leukocyte Esterase,Urine 2+ (Negative); Nitrate,Urine Negative (Negative); PH,Urine 6.5 (5.0-8.5); Protein,Urine Negative (Negative)
[2023-06-15 21:47] VITALS: BP 118/77; PULSE 89; RESP 18; TEMP 37; O2SAT 98; BMI 28.2
[2023-06-15 22:10] LABS: Bacteria,Urine 1+ /lpf; RBC,Urine Occasional #/hpf (0-3)
[2023-06-15 22:15] LABS: Amphetamine/Metha Screen,Urine Negative ng/ml (<1000); Barbiturates Screen,Urine Negative ng/ml (<200)
[2023-06-15 22:16] LABS: Benzodiazepines Screen,Urine Negative ng/ml (<200)
[2023-06-15 22:17] LABS: Cannabinoid Screen,Urine Negative ng/ml (<50)
[2023-06-15 22:18] LABS: Cocaine Screen,Urine Negative ng/ml (<300); Methadone Screen,Urine Negative ng/ml (<300)
[2023-06-15 22:19] LABS: Opiate Screen,Urine Negative ng/ml (<300); Phencyclidine Screen,Urine Negative ng/ml (<25)
== END 2023-06-15 23:18 | disposition home or self-care (01) ==
LOC: OBOUT 20:54 → OB 20:54
PROVIDERS: PCP Internal Medicine Adolescent Medicine; Visit Provider Nurse Practitioner Obstetrics & Gynecology
DX: O26.892 Other specified pregnancy related conditions, second trimester (principal); Z3A.26 26 weeks gestation of pregnancy
CPT/HCPCS: 59025; 80305; 81001; 87086; 96365; 96367; 96372; G0463; J0690

== ENCOUNTER 2023-06-16 21:37 | Outpatient (CLI) | payer OTHER, SELFPAY ==
[2023-06-16 21:48] VITALS: BP 131/79; PULSE 80; RESP 15; TEMP 36.9; O2SAT 99; BMI 28.3
--- NOTE | 2023-06-16 21:49 | PC.NURSE ---
Patient here for second dose of steroid shot.
== END 2023-06-16 21:58 | disposition home or self-care (01) ==
LOC: OBOUT 21:39
PROVIDERS: PCP Internal Medicine Adolescent Medicine; Visit Provider Obstetrics & Gynecology
DX: O26.892 Other specified pregnancy related conditions, second trimester (principal); Z3A.26 26 weeks gestation of pregnancy; O30.032 Twin pregnancy, monochorionic/diamniotic, second trimester
CPT/HCPCS: 96372; G0463